=== PATIENT | male | born 1965 | race Caucasian/White ===

== ENCOUNTER 2019-03-24 | Emergency (ER) | payer OTHER ==
--- NOTE | 2019-03-24 13:17 | ER ---
Nurse's Notes [facility] Name: Tyler Mcrae Age: 53 yrs Sex: Male : 1965 Arrival Date: 03/24/2019 Time: 12:24 Bed 16 Private MD: Diagnosis: Otitis media, unspecified, right ear Presentation: 03/24 12:38 Presenting complaint: Patient states: Here to have medications refilled as patient is ss from out of town. Transition of care: patient was not received from another setting of care. Onset of symptoms is unknown. Risk Assessment: Do you want to hurt yourself or someone else? Patient reports no desire to harm self or others. Initial Sepsis Screen: Does the patient meet any 2 criteria? No. Patient's initial sepsis screen is negative. Does the patient have a suspected source of infection? No. Patient's initial sepsis screen is negative. Care prior to arrival: None. 12:38 Method Of Arrival: Ambulatory ss 12:38 Acuity: HAWA 5 ss Historical: - Allergies: 12:42 No Known Allergies; ss - Home Meds: 12:42 metoprolol tartrate 25 mg Oral tab 1 tab once daily [Active]; ibuprofen 800 mg Oral tab ss 1 tab twice a day [Active]; omeprazole 20 mg Oral cpDR 1 cap once daily [Active]; [place] 7.5-325 mg Oral tab 1 tab three times a day [Active]; - PMHx: 12:42 Chronic pain; Hypertension; ss - Immunization history:: Adult Immunizations up to date. - Social history:: Smoking status: Patient reports the use of cigarette tobacco products, smokes one-half pack cigarettes per day. - Ebola Screening: : Patient denies exposure to infectious person Patient denies travel to an Ebola-affected area in the 21 days before illness onset. Screenin:57 Abuse screen: Denies threats or abuse. Denies injuries from another. Nutritional ca1 screening: No deficits noted. Tuberculosis screening: No symptoms or risk factors identified. Fall Risk None identified. Assessment: 12:57 General: Appears in no apparent distress. comfortable, Behavior is calm, cooperative, ca1 appropriate for age. Pain: Denies pain. Neuro: Level of Consciousness is awake, alert, obeys commands, Oriented to person, place, time, situation, Appropriate for age. Cardiovascular: Heart tones S1 S2 present Capillary refill < 3 seconds Patient's skin is warm and dry. Respiratory: Airway is patent Respiratory effort is even, unlabored, Respiratory pattern is regular, symmetrical. GI: No signs and/or symptoms were reported involving the gastrointestinal system. : No signs and/or symptoms were reported regarding the genitourinary system. EENT: No signs and/or symptoms were reported regarding the EENT system. Derm: Skin is intact, is healthy with good turgor, Skin is pink, warm \T\ dry. Musculoskeletal: Circulation, motion, and sensation intact. Capillary refill < 3 seconds. 13:31 Reassessment: PT D/C HOME AMBULATORY, DX WITH OTITIS MEDIA. bp Vital Signs: 12:42 BP 144 / 103; Pulse 108; Resp 17; Temp 97.9(O); Pulse Ox 99% on R/A; Weight 90.72 kg; ss Height 5 ft. 11 in. (180.34 cm); Pain 5/10; 12:42 Body Mass Index 27.89 (90.72 kg, 180.34 cm) ED Course: 12:24 Patient arrived in ED. ds1 12:40 Triage completed. ss 12:42 Arm band placed on right wrist. ss 12:44 Camron Pandey MD is Attending Physician. tw4 12:57 Ainsley Hoff RN is Primary Nurse. ca1 12:57 Patient has correct armband on for positive identification. Bed in low position. Call ca1 light in reach. Side rails up X 1. 12:57 No provider procedures requiring assistance completed. Patient did not have IV access ca1 during this emergency room visit. Administered Medications: No medications were administered Outcome: 13:17 Discharge ordered by . tw4 13:31 Discharged to home ambulatory. bp 13:31 Condition: stable 13:31 Discharge instructions given to patient, Instructed on discharge instructions, follow up and referral plans. medication usage, Demonstrated understanding of instructions, follow-up care, medications, Prescriptions given X 4. 13:33 Patient left the ED. bp Signatures: Venessa Pinto ds1 Kanchan Reilly RN RN Alex Oscar RN RN bp Wadley, Terrence, MD MD [facility] Ainsley Hoff RN RN [facility]
--- NOTE | 2019-03-25 13:35 | EDPHYS ---
Physician Documentation [facility] Name: Tyler Mcrae Age: 53 yrs Sex: Male : 1965 Arrival Date: 03/24/2019 Time: 12:24 Bed 16 Private MD: ED Physician Camron Pandey HPI: 03/24 18:15 This 53 yrs old Male presents to ER via Ambulatory with complaints of Ear tw4 Problem. 18:15 The patient presents with pain. The complaints affect the right ear. Onset: The tw4 symptoms/episode began/occurred yesterday. Modifying factors: The symptoms are alleviated by nothing, the symptoms are aggravated by nothing. Associated signs and symptoms: The patient has no apparent associated signs or symptoms. Severity of symptoms: At their worst the symptoms were moderate in the emergency department the symptoms are unchanged. Historical: - Allergies: 12:42 No Known Allergies; ss - Home Meds: 12:42 metoprolol tartrate 25 mg Oral tab 1 tab once daily [Active]; ibuprofen 800 mg Oral tab ss 1 tab twice a day [Active]; omeprazole 20 mg Oral cpDR 1 cap once daily [Active]; [place] 7.5-325 mg Oral tab 1 tab three times a day [Active]; - PMHx: 12:42 Chronic pain; Hypertension; ss - Immunization history:: Adult Immunizations up to date. - Social history:: Smoking status: Patient reports the use of cigarette tobacco products, smokes one-half pack cigarettes per day. - Ebola Screening: : Patient denies exposure to infectious person Patient denies travel to an Ebola-affected area in the 21 days before illness onset. ROS: 18:15 Constitutional: Negative for fever, chills, and weight loss, Eyes: Negative for injury, tw4 pain, redness, and discharge. 18:15 Cardiovascular: Negative for chest pain, palpitations, and edema, Respiratory: Negative for shortness of breath, cough, wheezing, and pleuritic chest pain, Abdomen/GI: Negative for abdominal pain, nausea, vomiting, diarrhea, and constipation, Back: Negative for injury and pain, MS/Extremity: Negative for injury and deformity, Skin: Negative for injury, rash, and discoloration. 18:15 ENT: Positive for ear pain. Exam: 18:15 Constitutional: This is a well developed, well nourished patient who is awake, alert, tw4 and in no acute distress. Head/Face: Normocephalic, atraumatic. 18:15 Chest/axilla: Normal chest wall appearance and motion. Nontender with no deformity. No lesions are appreciated. Cardiovascular: Regular rate and rhythm with a normal S1 and S2. No gallops, murmurs, or rubs. Normal PMI, no JVD. No pulse deficits. 18:15 ENT: TM's: erythema, that is mild, on the right. Vital Signs: 12:42 BP 144 / 103; Pulse 108; Resp 17; Temp 97.9(O); Pulse Ox 99% on R/A; Weight 90.72 kg; ss Height 5 ft. 11 in. (180.34 cm); Pain 5/10; 12:42 Body Mass Index 27.89 (90.72 kg, 180.34 cm) ss MDM: 12:44 Patient medically screened. tw4 18:15 Differential diagnosis: otitis media, otitis externa, ruptured TM, foreign body, acute tw4 otalgia, cerumen impaction. Data reviewed: vital signs, nurses notes. Data interpreted: Pulse oximetry: Interpretation: normal. Counseling: I had a detailed discussion with the patient and/or guardian regarding: the historical points, exam findings, and any diagnostic results supporting the discharge/admit diagnosis. Special discussion: I discussed with the patient/guardian in detail that at this point there is no indication for admission to the hospital. It is understood, however, that if the symptoms persist or worsen the patient needs to return immediately for re-evaluation. Administered Medications: No medications were administered Disposition: 03/24/19 13:17 Discharged to Home. Impression: Otitis media, unspecified, right ear. - Condition is Stable. - Discharge Instructions: Otitis Media, Adult. - Prescriptions for omeprazole 40 mg Oral capsule,delayed release(DR/EC) - take 1 capsule by ORAL route once daily before a meal; 20 capsule. Amoxicillin 500 mg Oral Capsule - take 1 capsule by ORAL route every 8 hours for 10 days; 30 tablet. Ibuprofen 800 mg Oral Tablet - take 1 tablet by ORAL route every 8 hours As needed take with food; 30 tablet. Metoprolol Tartrate 25 mg Oral Tablet - take 1 tablet by ORAL route 2 times per day with a meal; 20 tablet. - Medication Reconciliation Form, Thank You Letter, Antibiotic Education, Prescription Opioid Use form. - Follow up: Private Physician; When: Upon discharge from the Emergency Department; Reason: Recheck today's complaints, Continuance of care. - Problem is new. - Symptoms are unchanged. Signatures: Kanchan Reilly RN RN ss Alex Oscar RN RN bp Camron Pandey MD MD tw4 Corrections: (The following items were deleted from the chart) 13:33 13:17 03/24/2019 13:17 Discharged to Home. Impression: Otitis media, unspecified, right bp ear. Condition is Stable. Forms are Medication Reconciliation Form, Thank You Letter, Antibiotic Education, Prescription Opioid Use. Follow up: Private Physician; When: Upon discharge from the Emergency Department; Reason: Recheck today's complaints, Continuance of care. Problem is new. Symptoms are unchanged. tw4
== END 2019-03-24 13:33 | disposition home or self-care (01) ==
CPT/HCPCS: 99282